=== PATIENT | male | born 1985 | race Caucasian/White ===

== ENCOUNTER 2016-07-21 14:05 | Emergency (ER) | payer SELFPAY ==
[2016-07-21 14:25] VITALS: BP 123/65
--- NOTE | 2016-07-21 14:52 | EDM.PDOC ---
ED HPI LOWER BACK PAIN/INJURY - General Chief Complaint: Back Pain or Injury Stated Complaint: LOWER BACK PAIN Time Seen by Provider: 07/21/16 14:32 Source of Information: Reports: Patient History Limitations: Reports: No limitations - History of Present Illness INITIAL COMMENTS - FREE TEXT/NARRATIVE: Presents for evaluation and treatment of low back pain. Patient reports that the low-back pain is mostly located on the left side. He states that last night he was cleaning house and he bent down to pick something up and felt immediate pain into his low back. States that he went to bed when he woke this morning the pain seemed to be worse. States that the pain radiates from his left lower back into his left hip. It is worse with movement and walking. He reports when he lifts his right leg he can feel on his left side. He states he feels best when his hips are flexed. Patient has not taking anything for pain relief. denies any nausea, vomiting, fevers, chills, urinary incontinence, stool incontinence, numbness or tingling down the legs. Patient reports that he was seen in ER about a year ago. He states that he had back pain from his sciatic nerve. He is unsure x-rays or imaging was done. - Related Data Allergies/ADRs: Allergies Allergy/AdvReac Type Severity Reaction Status Date / Time No Known Allergies Allergy Verified 07/21/16 14:25 Home Meds: Home Meds Ranitidine HCl [Zantac] 150 mg PO Q24H PRN 08/24/15 [History] Past Medical History Cardiovascular History: Reports: Heart murmur Gastrointestinal History: Reports: GERD, Hiatal hernia Social & Family History - Tobacco Use Smoking Status *Q: Former Smoker Years of Tobacco use: 12 Packs/Tins Daily: 0.5 Used Tobacco, but Quit: Yes Month Tobacco Last Used: 2 years Second Hand Smoke Exposure: No - Caffeine Use Caffeine Use: Reports: None - Alcohol Use Days Per Week of Alcohol Use: 1 Number of Drinks Per Day: 2 Total Drinks Per Week: 2 - Recreational Drug Use Recreational Drug Use: No ED ROS GENERAL - Review of Systems Review Of Systems: See Below Constitutional: Denies: fever, chills GI/Abdominal: Denies: Nausea, Stool incontinence, Vomiting : Denies: incontinence Neurological: Denies: Numbness, Tingling ED EXAM,LOWER BACK PAIN/INJURY - Physical Exam Exam: See Below Exam Limited By: No limitations General Appearance: alert, WD/WN, no apparent distress Respiratory/Chest: no respiratory distress, lungs clear, normal breath sounds Cardiovascular: normal peripheral pulses, regular rate, rhythm, no murmur Back Exam: normal inspection, paraspinal tenderness (left paraspinal L3-S1). No : vertebral tenderness Extremities: normal inspection Neurological: alert, normal mood/affect, normal dorsiflexion, normal plantar flexion, straight leg raise (R). No: straight leg raise (L) Psychiatric: normal affect, normal mood Skin Exam: Warm, Dry Course - Vital Signs Last Recorded V/S: Last Vital Signs Temp 36.6 C 07/21/16 14:21 Pulse 83 07/21/16 16:14 Resp 16 07/21/16 14:21 BP 123/65 07/21/16 14:21 Pulse Ox 99 07/21/16 16:14 - Orders/Labs/Meds Orders: Active Orders 24 hr Category Date Time Status Lumbar Spine 2 or 3V [CR] Stat Exams 07/21/16 14:53 Taken Meds: Medications Discontinued Medications Generic Name Dose Route Start Last Admin Trade Name Jeovany PRN Reason Stop Dose Admin Ketorolac Tromethamine 60 mg 07/21/16 14:53 07/21/16 15:14 Toradol IM 07/21/16 14:54 60 mg ONETIME ONE Administration - Radiology Interpretation Free Text/Narrative:: xray of the lumbar spine shows no acute fractures or dislocations. - Re-Assessments/Exams Free Text/Narrative Re-Assessment/Exam: 07/21/16 15:39 Patient drove himself here, therefore no narcotic pain medication will be given in the ER. I reviewed the x-ray results with the patient. Most likely a muscle strain causing his symptoms. Will prescribe some muscle relaxers and tramadol for pain relief. If the symptoms persist beyond one week he may need an MRI for further evaluation to rule out a herniated disc. Follow-up with family medicine for this. Will discharge home. Discharge instructions as definite Departure - Departure Time of Disposition: 15:44 Disposition: Home, Self-Care 01 Condition: fair Clinical Impression: Muscle spasm, Lumbago Instructions: Muscle Cramps and Spasms, Muscle Pain, Adult Referrals: PCP,None [Primary Care Provider] - Forms: ED Department Discharge, Return to Work/School Form Additional Instructions: Prescription for tramadol 50 mg tabs one tab her for 6 hours #15. Prescription for Flexeril 10 mg tabs one tab every 8 hours #15 given for maintenance. Activity as tolerated. We recommended to rest but do not be completely bed ridden this can often make your symptoms worse. Gentle stretching and range of motion as tolerated. Utilize ice or moist heat to the low back for additional muscle relaxation and symptom relief. He may take [id number]-[id number] Tylenol or Motrin as needed for paiin . He may take one tramadol every 4-6 hours as needed for severe pain. Do not drive or operate machinery within 12 hours of taking the tramadol. Tramadol can be habit- forming, recommend you take as few of these as needed to control your pain. Take Flexeril 1/2 to 1 tab every 8 hours as needed for muscle spasm. Flexeril can make you drowsy. Do not drive or operate machinery after taking this medication. expect your symptoms last about one week. Should your symptoms persist beyond 7 -10 days recommended follow up with family medicine or internal medicine. I recommend Asim Bañuelos or Reina Alcala. They're located at the [facility]. Call [phone] to scheduled with one of them. Please return to the ER if your symptoms change or worsen. - My Orders Last 24 Hours: My Active Orders 07/21/16 14:53 Lumbar Spine 2 or 3V [CR] Stat - Assessment/Plan Last 24 Hours: My Active Orders 07/21/16 14:53 Lumbar Spine 2 or 3V [CR] Stat
[2016-07-21] MEDS ORDERED: Ketorolac 60 MG/2 ML SDV IM ONE (14:53)
--- NOTE | 2016-07-22 11:46 | CR ---
Lumbar spine: AP, lateral and coned-down lateral views centered to the lumbosacral junction were obtained. Comparison: No previous study. Vertebral body heights and disc spaces are maintained. Pedicles as well as transverse and spinous processes are intact. Sacroiliac joints are unremarkable. Posterior disc space narrowing seen at L5-S1 which is felt to be physiologic. Impression: 1. No abnormality is identified on three-view lumbar spine study. Diagnostic code #1
== END 2016-07-21 15:56 | disposition home or self-care (01) ==
LOC: JD.ED 14:05
DX: M62.830 Muscle spasm of back (principal); M54.5 Low back pain; R01.1 Cardiac murmur, unspecified; K21.9 Gastro-esophageal reflux disease without esophagitis; Z87.891 Personal history of nicotine dependence
CPT/HCPCS: 72100; 96372; 99283; J1885

== ENCOUNTER 2018-05-29 18:17 | Emergency (ER) | payer BC ==
[2018-05-29 18:33] VITALS: BP 133/80
[2018-05-29] MEDS ORDERED: Ondansetron 4 MG/2 ML SDV IVPUSH ONE (18:51)
[2018-05-29] MEDS ORDERED: Sodium Chloride 0.9% 1,000 ML IV ONE (18:52)
[2018-05-29] MEDS ORDERED: HYDROmorphone 1 MG/ML Syringe IVPUSH ONE (19:15)
--- NOTE | 2018-05-29 20:29 | EDM.PDOC ---
ED HPI GENERAL MEDICAL PROBLEM - General Chief Complaint: Abdominal Pain Stated Complaint: VOMITING AND DIARRHEA AND ABD PAIN Time Seen by Provider: 05/29/18 18:54 Source of Information: Reports: Patient, RN Notes Reviewed History Limitations: Reports: No Limitations - History of Present Illness INITIAL COMMENTS - FREE TEXT/NARRATIVE: Patient is a 32 year old male who presents to the ED for the evaluation of abdominal pain and nausea/vomiting. He states that he has been sick for the last 3-4 days with nausea/vomiting/diarrhea. He did go to the walk-in clinic on tuesday and was placed on an antibiotic and was told to follow up tomorrow if the pain was not better. He notes that the abdominal pain has not gotten better. He states that this is in his upper abdomen, but mostly on his RUQ. He rates this at a 9/10. He notes that he gets sharp abdominal pains in his RUQ, then he vomits and has diarrhea. The and the patient note that the volume of the diarrhea and vomits have been large. He thinks that his has been around 5 -6 times per day. He notes that he feels chilled and then has the sweats. He has not been able to keep much of anything down for fluids or food. Upper Abdomen Pain Score (Numeric/FACES): 9 - Related Data Allergies Allergy/AdvReac Type Severity Reaction Status Date / Time dust Allergy Wheezing Uncoded 05/29/18 18:26 Home Meds: Home Meds Ranitidine HCl [Zantac] 150 mg PO Q24H PRN 08/24/15 [History] Past Medical History - Past Health History Medical/Surgical History: Denies Medical/Surgical History Cardiovascular History: Reports: Heart Murmur Gastrointestinal History: Reports: GERD, Hiatal Hernia Other Gastrointestinal History: ED visit today for hernia pain Musculoskeletal History: Reports: Back Pain, Chronic Other Musculoskeletal History: lower back problems Neurological History: Reports: Concussion Psychiatric History: Reports: Anxiety, Depression - Past Surgical History GI Surgical History: Reports: Hernia, Inguinal Social & Family History - Family History Family Medical History: Noncontributory Cardiac: Reports: CAD, [place] Oncologic: Reports: Cervix - Tobacco Use Smoking Status *Q: Current Some Day Smoker Years of Tobacco use: 10 Packs/Tins Daily: 0.5 - Caffeine Use Caffeine Use: Reports: Coffee, Soda - Recreational Drug Use Recreational Drug Use: No - Living Situation & Occupation Living situation: Reports: with Significant Other (has girlfriend) Occupation: Employed ED ROS GENERAL - Review of Systems Review Of Systems: See Below Constitutional: Reports: Chills HEENT: Reports: No Symptoms Respiratory: Reports: No Symptoms Cardiovascular: Reports: No Symptoms Endocrine: Reports: No Symptoms GI/Abdominal: Reports: Abdominal Pain (RUQ), Diarrhea, Nausea, Vomiting : Reports: No Symptoms Musculoskeletal: Reports: No Symptoms Skin: Reports: No Symptoms Neurological: Reports: No Symptoms Psychiatric: Reports: No Symptoms Hematologic/Lymphatic: Reports: No Symptoms Immunologic: Reports: No Symptoms ED EXAM, GI/ABD - Physical Exam Exam: See Below Exam Limited By: No Limitations General Appearance: Alert, WD/WN, Mild Distress (pt appears to be in pain at initial evaluation.) Eyes: Bilateral: Normal Appearance Ears: Normal External Exam Nose: Normal Inspection Throat/Mouth: Normal Inspection, Normal Teeth, Normal Oropharynx, No Airway Compromise Head: Atraumatic, Normocephalic Neck: Normal Inspection Respiratory/Chest: No Respiratory Distress, Lungs Clear, Normal Breath Sounds, No Accessory Muscle Use, Chest Non-Tender Cardiovascular: Normal Peripheral Pulses, Regular Rate, Rhythm, No Murmur GI/Abdominal Exam: Normal Bowel Sounds, Soft, No Distention, Tender (mainly over RUQ and epigastrium but is generally tender throughout his entire abdomen.) , Other (abdomen is typmanitic to percussion). No: Rigid Extremities: Normal Inspection, Normal Capillary Refill Neurological: Alert, Oriented, Normal Cognition, No Motor/Sensory Deficits Psychiatric: Normal Affect, Normal Mood Skin Exam: Warm, Dry, Intact, Normal Color, No Rash Course - Vital Signs Last Recorded V/S: Last Vital Signs Temp 98.9 F 05/29/18 18:30 Pulse 97 05/29/18 18:30 Resp 16 05/29/18 18:30 BP 133/80 05/29/18 18:30 Pulse Ox 94 L 05/29/18 18:30 - Orders/Labs/Meds Orders: Active Orders 24 hr Category Date Time Status Abdomen Pelvis w Cont [CT] Stat Exams 05/29/18 19:16 Ordered Labs: Laboratory Tests 05/29/18 05/29/18 Range/Units 18:40 18:40 WBC 15.78 H (4.23-9.07) K/mm3 RBC 6.20 H (4.63-6.08) M/mm3 Hgb 17.1 (13.7-17.5) gm/L Hct 49.3 (40.1-51.0) % MCV 79.5 (79.0-92.2) fl MCH 27.6 (25.7-32.2) pg MCHC 34.7 (32.2-35.5) g/dl RDW Std Deviation 42.3 (35.1-43.9) fL Plt Count 189 (163-337) K/mm3 MPV 11.1 (9.4-12.3) fl Neutrophils % (Manual) 87 H (40-60) % Band Neutrophils % 1 (0-10) % Lymphocytes % (Manual) 10 L (20-40) % Atypical Lymphs % 0 % Monocytes % (Manual) 1 L (2-10) % Eosinophils % (Manual) 1 (0.8-7.0) % Basophils % (Manual) 0 L (0.2-1.2) Platelet Estimate Adequate RBC Morph Comment Normal Sodium 141 (136-145) mEq/L Potassium 3.4 L (3.5-5.1) mEq/L Chloride 104 (98-107) mEq/L Carbon Dioxide 23 (21-32) mEq/L Anion Gap 17.4 H (5-15) BUN 19 H (7-18) mg/dL Creatinine 1.2 (0.7-1.3) mg/dL Est Cr Clr Drug Dosing 94.13 mL/min Estimated GFR (MDRD) > 60 (>60) mL/min BUN/Creatinine Ratio 15.8 (14-18) Glucose 104 (74-106) mg/dL Calcium 8.9 (8.5-10.1) mg/dL Total Bilirubin 0.8 (0.2-1.0) mg/dL GGT 55 (15-85) U/L AST 29 (15-37) U/L ALT 70 H (16-63) U/L Alkaline Phosphatase 66 (46-116) U/L C-Reactive Protein 1.0 (<1.0) mg/dL Total Protein 7.7 (6.4-8.2) g/dl Albumin 4.1 (3.4-5.0) g/dl Globulin 3.6 gm/dL Albumin/Globulin Ratio 1.1 (1-2) Lipase 120 (73-393) U/L Meds: Medications Discontinued Medications Generic Name Dose Route Start Last Admin Trade Name Jeovany PRN Reason Stop Dose Admin Diatrizoate Meglum/Diatrizoate Sod 90 ml 05/29/18 20:43 05/29/18 21:40 Gastrografin 37% PO 05/29/18 20:44 90 ml ONETIME ONE Administration Hydromorphone HCl 1 mg 05/29/18 19:15 05/29/18 19:30 Dilaudid IVPUSH 05/29/18 19:16 1 mg ONETIME ONE Administration Sodium Chloride 1,000 mls @ 999 mls/hr 05/29/18 18:52 05/29/18 18:58 Normal Saline IV 05/29/18 19:52 999 mls/hr ONETIME ONE Administration Iopamidol 100 ml 05/29/18 20:43 05/29/18 21:41 Isovue-300 (61%) IVPUSH 05/29/18 20:44 100 ml ONETIME ONE Administration Metoclopramide HCl 10 mg 05/29/18 20:47 05/29/18 21:11 Reglan IVPUSH 05/29/18 20:48 10 mg ONETIME ONE Administration Ondansetron HCl 4 mg 05/29/18 18:51 05/29/18 18:57 Zofran IVPUSH 05/29/18 18:52 4 mg ONETIME ONE Administration Sodium Chloride 10 ml 05/29/18 20:43 05/29/18 21:40 Saline Flush FLUSH 05/29/18 20:44 10 ml ONETIME ONE Administration - Re-Assessments/Exams Free Text/Narrative Re-Assessment/Exam: 05/29/18 19:30 Pt presents to the ED for the evaluation of ongoing abdominal pain and nausea/ vomiting/diarrhea. I have ordered Lipase, CRP, CBC, CMP, GGT, 4 mg IV Zofran, IV fluid bolus, and abdomen/pelvis CT w contrast for initial evaluation of his abdominal pain. He has a rather sizeable abdomen, but notes this is normal for him. It is tympanitic which is a little concerning. I am unsure of the etiology of his pain and other symptoms, but he does still have a gallbladder and his appendix. 05/29/18 20:50 Pt re-assessed at bedside, and he states that he is nauseous. His WBC is elevated at 15,000 but CRP, lipase, and GGT are normal. I am still unsure of source of his issues or if the WBC is part of stress reaction to his symptoms. Abdomen CT is still pending, as he is still drinking the oral contrast. 05/29/18 22:[address] is done and read by [facility]: simple cysts in both kidneys, enlarged liver and spleen, no focal mass is seen, Normal appendix. No acute abnormality in abdomen or pelvis in this exam. Pt was made aware of this and the results were discussed at bedside. He states that he has a follow up appointment at [facility] tomorrow, I have advised him to keep this and maybe ask about a referral for GI or upper endoscopy to see if he has an ulcer. Departure - Departure Time of Disposition: 22:56 Disposition: Home, Self-Care 01 Condition: Fair Clinical Impression: Abdominal pain Qualifiers: Abdominal location: upper abdomen, unspecified Qualified Code(s): R10.10 - Upper abdominal pain, unspecified - Discharge Information *PRESCRIPTION DRUG MONITORING PROGRAM REVIEWED*: No *COPY OF PRESCRIPTION DRUG MONITORING REPORT IN PATIENT YONAS: No Instructions: Abdominal Pain, Adult, [id number] Forms: ED Department Discharge Additional Instructions: You have been evaluated in the ED for your upper abdominal pain. Your workup in the ED tonight was fairly unremarkable. Your CT did not demonstrate any acute abnormality. Your labs were within normal limits, Your WBC was elevated but this is felt to be due to stress reaction. Recommend taking Omeprazole OTC daily for management of heartburn symptoms. Keep your appointment with [facility] tomorrow and ask them about a possible GI referral or general surgery for upper endoscopy for evaluation of possible ulcer. There is no definite answer for your symptoms tonight. Please take the prescribed medications as directed. Please return to the ED if your symptoms change or worsen. - My Orders Last 24 Hours: My Active Orders 05/29/18 19:16 Abdomen Pelvis w Cont [CT] Stat - Assessment/Plan Last 24 Hours: My Active Orders 05/29/18 19:16 Abdomen Pelvis w Cont [CT] Stat
[2018-05-29] MEDS ORDERED: Sodium Chloride 0.9% 10 ML Syringe FLUSH ONE (20:43)
[2018-05-29] MEDS ORDERED: Iopamidol 612 MG/ML 100 ML Bottle IVPUSH ONE (20:43)
[2018-05-29] MEDS ORDERED: Diatrizoate Meglumine/Diatrizoate Sodium 37% 120 ML Bottle PO ONE (20:43)
[2018-05-29] MEDS ORDERED: Metoclopramide 10 MG/2 ML SDV IVPUSH ONE (20:47)
--- NOTE | 2018-05-30 07:18 | CT ---
CT abdomen and pelvis Technique: Multiple axial sections were obtained from above the dome of the diaphragm inferiorly through the pubic symphysis. Intravenous and oral contrast was utilized. Delayed images were also obtained through the abdomen and pelvis. Comparison: Prior noncontrast CT abdomen and pelvis exam of 02/10/18. Findings: Small portion of the visualized lung bases shows nothing acute. Liver shows fatty infiltration. No focal abnormality is seen within the liver. Spleen appears within normal limits. Adrenal glands show no nodule. Pancreas is within normal limits. Gallbladder contains no calcified gallstones. Small cysts are noted within both kidneys. Kidneys show symmetric contrast enhancement without hydronephrosis. Pancreas is within normal limits. Aorta shows no aneurysm. No retroperitoneal adenopathy or mesenteric abnormalities are seen. No pelvic mass or adenopathy is seen. Delayed images show contrast within nondilated ureters. Contrast is noted within the bladder. Small fat-containing inguinal hernia is seen. Small fat-containing anterior abdominal wall hernia at the umbilicus. Other abdominal wall hernia seen on prior study more superior to the umbilicus is not seen on current exam. Bone window settings were reviewed which appear within normal limits for the patient's age. Appendix is seen and is normal in size. Impression: 1. Fatty infiltration within the liver. 2. Multiple small cysts within both kidneys. 3. Nothing acute is seen on CT study of the abdomen and pelvis. Diagnostic code #2 I agree with preliminary report from [facility], finalized on 05/29/18, 11:36 PM Central Time
== END 2018-05-29 23:11 | disposition home or self-care (01) ==
LOC: JD.ED 18:17
DX: R10.10 Upper abdominal pain, unspecified (principal); F17.210 Nicotine dependence, cigarettes, uncomplicated
CPT/HCPCS: 36415; 74177; 80053; 82977; 83690; 85007; 85027; 86140; 96361; 96374; 96375; 99284; J1170; J2405; J2765; J7040; Q9963; Q9967